=== PATIENT | male | born 1995 | race Caucasian/White ===

== ENCOUNTER 2024-03-18 14:44 | Emergency (ER) | payer BC ==
[2024-03-18] MEDS: Diphtheria,Pertussis(Acell),Tetanus Vaccine 0.5 ML Syringe IM ONE (15:24)
[2024-03-18] MEDS: Lidocaine 1% 5 ML VIAL INFILT ONE (15:36)
[2024-03-18] MEDS: Bacitracin Oint 1 GM U/D Packet TOP ONE (15:37)
== END 2024-03-18 15:33 | disposition home or self-care (01) ==
LOC: LB.ED 14:44
DX: S61.211A Laceration without foreign body of left index finger without damage to nail, initial encounter (principal); S61.412A Laceration without foreign body of left hand, initial encounter; Z23 Encounter for immunization; Z79.899 Other long term (current) drug therapy; W26.8XXA Contact with other sharp object(s), not elsewhere classified, initial encounter
CPT/HCPCS: 12002; 90471; 90715; 99282-25; 99283